=== PATIENT | female | born 2000 | race Caucasian/White ===

== ENCOUNTER → 2021-08-03 | Outpatient (CLI) | payer BC ==
--- NOTE | 2021-08-03 12:20 | KCIC ---
EXAM: ULTRASOUND ABDOMEN LIMITED CLINICAL HISTORY: COLICKY RUQ ABDOMINAL PAIN, FOCUS ON GB COMPARISON: None available. TECHNIQUE: Limited ultrasound examination of the right upper quadrant of the abdomen was performed. FINDINGS: The head and body of the pancreas are unremarkable. The tail is obscured by intestinal gas.. Liver: 14.4 cm in length. Increased hepatic echogenicity relative to the right kidney consistent wi th hepatic steatosis.. There are no focal liver lesions. Flow seen within the portal veins. Biliary: Gallbladder is contracted. Echogenic material dependently likely sludge or small gallstones. No wall thickening or pericholecystic fluid. There is no pain with direct transducer pressure over the gallbladder. Common bile duct measures 0.2. Right Kidney: 9.8 cm in bipolar length. Normal renal cortical echotexture and thickness. No focal beverly al lesion, shadowing renal calculus or hydronephrosis. Visualized portions of the abdominal aorta and inferior vena cava are unremarkable. There is no free fluid in the subhepatic space. IMPRESSION: 1. Fatty liver. 2. Sludge or small gallstones are seen within the gallbladder. No sonographic evidence for acute cho lecystitis. Electronically signed by: Bryant Mcduffie MD (08/03/2021 12:17 PM) [id number]
== END ==
LOC: KCIC US 08:54
PROVIDERS: ATTEND Physician Assistant Medical
DX: K76.0 Fatty (change of) liver, not elsewhere classified (principal); K80.20 Calculus of gallbladder without cholecystitis without obstruction
CPT/HCPCS: 76705

== ENCOUNTER → 2021-09-12 | Outpatient (CLI) | payer BC ==
[~2021-09-12] MED LIST: ASCO500C PO; GABA300C18 PO; MEDR150V3 IM; SERT100T PO
== END ==
LOC: LAB 10:32
PROVIDERS: ATTEND Surgery
DX: U07.1 COVID-19 (principal); K80.20 Calculus of gallbladder without cholecystitis without obstruction
CPT/HCPCS: U0003; U0005

== ENCOUNTER 2021-09-28 06:05 | Day surgery (SDC) | payer BC ==
[~2021-09-28] VITALS: Ht 160 cm; Wt 77.0 kg
[~2021-09-28 06:05] MED LIST changes: +HYDROmorphone 2 MG/ML INJ. IVP PRN; +IV RINGERS,LACTATED 1000ML 1,000 ML IV SCH; +MORPHINE SULFATE 2 MG/ML INJ. IVP PRN; +PROCHLORPERAZINE 10 MG/2 ML VIAL. IVP PRN; +fentaNYL PF VIAL 100 MCG/2 ML VIAL IVP PRN
[2021-09-28 06:35] VITALS: BP 123/77
[2021-09-28] MEDS ORDERED: LIDOCAINE 2% 100 MG/5 ML SYRINGE. ONE (07:00)
[2021-09-28] MEDS ORDERED: DEXAMETHASONE SOD PHOS 20 MG/5 ML VIAL. ONE (07:00)
[2021-09-28] MEDS ORDERED: ePHEDrine PF IN SALINE 50 MG/10 ML SYRINGE. IV ONE (07:00)
[2021-09-28] MEDS ORDERED: NEOSTIGMINE METHYLSULFATE 5 MG/5 ML SYRINGE. ONE (07:00)
[2021-09-28] MEDS ORDERED: PROPOFOL 10 MG/ML (20ML) VIAL. IV ONE (07:00)
[2021-09-28] MEDS ORDERED: GLYCOPYRROLATE 1 MG/5 ML SYRINGE. ONE (07:00)
[2021-09-28] MEDS ORDERED: ROCURONIUM 50 MG/5 ML VIAL. ONE (07:00)
[2021-09-28] MEDS ORDERED: ESMOLOL 100 MG/10 ML VIAL. IVP ONE (07:00)
[2021-09-28] MEDS ORDERED: BUPIVACAINE-EPI 0.5% 30 ML VIAL KIT. ONE (07:04)
[2021-09-28] MEDS ORDERED: SURGICEL HEMOSTAT 4X8 EACH. ONE (07:04)
[2021-09-28] MEDS ORDERED: IOHEXOL 300 MG/ML 50 ML VIAL. ONE (07:04)
[2021-09-28] MEDS ORDERED: fentaNYL PF VIAL 100 MCG/2 ML VIAL ONE ×2 (07:05→08:42)
[2021-09-28] MEDS ORDERED: MIDAZOLAM HCL/PF 2 MG/2 ML VIAL. ONE (07:06)
[2021-09-28] MEDS ORDERED: SCOPOLAMINE 1.5MG PATCH. TD ONE (07:15)
--- NOTE | 2021-09-28 07:32 | PDOC1 ---
History and Physical Date of Admission Date of Admission DATE: 09/28/21 TIME: 07:29 History of Present Illness History of Present Illness The patient is a 21 year old female who was referred out of concern for symptomatic cholelithiasis. She has noticed abdominal pain which is typically worse after eating. She describes intermittent "gripping" pain in the upper abdomen with associated nausea. During her evaluation a sonogram was performed which showed gallstones or gallbladder sludge. Past Medical History Past Medical History anxiety Past Surgical History Past Surgical History tonsillectomy Social History Smoke: No ALCOHOL: none Drugs: None Current Medications Current Medications Current Medications Fentanyl Citrate (Fentanyl 2ml Vial) 25 mcg PRN Q5MIN PRN IVP MILD PAIN 1-3; Start 09/28/21 at 06:00; Stop 09/29/21 at 05:59 Fentanyl Citrate (Fentanyl 2ml Vial) 50 mcg PRN Q5MIN PRN IVP MODERATE PAIN 4- 6; Start 09/28/21 at 06:00; Stop 09/29/21 at 05:59 Morphine Sulfate (Morphine Sulfate) 1 mg PRN Q10MIN PRN IVP SEVERE PAIN 7-10; Start 09/28/21 at 06:00; Stop 09/29/21 at 05:59 Ringer's Solution 1,000 ml @ 30 mls/hr Q24H IV Last administered on 09/28/21at 06:38; Start 09/28/21 at 06:00; Stop 09/28/21 at 17:59 Hydromorphone HCl (Dilaudid) 0.5 mg PRN Q10MIN PRN IVP SEVERE PAIN 7-10, 2nd CHOICE; Start 09/28/21 at 06:00; Stop 09/29/21 at 05:59 Prochlorperazine Edisylate (Compazine) 5 mg PACU PRN PRN IVP NAUSEA, MRX1; Start 09/28/21 at 06:00; Stop 09/29/21 at 05:59 Levofloxacin/ Dextrose 100 ml @ 100 mls/hr 1X PREOP PRN IV PRIOR TO PROCEDURE; Start 09/28/21 at 06:00; Stop 09/28/21 at 18:00 Bupivacaine HCl/ Epinephrine Bitart (Sensorcain-Epi 0.5% Kit) 30 ml STK-MED ONCE .ROUTE ; Start 09/28/21 at 07:04; Stop 09/28/21 at 07:04; Status DC Iohexol (Omnipaque 300 Mg/ml) 50 ml STK-MED ONCE .ROUTE ; Start 09/28/21 at 07:04; Stop 09/28/21 at 07:04; Status DC Cellulose (Surgicel Hemostat 4x8) 1 each STK-MED ONCE .ROUTE ; Start 09/28/21 at 07:04; Stop 09/28/21 at 07:04; Status DC Fentanyl Citrate (Fentanyl 2ml Vial) 100 mcg STK-MED ONCE .ROUTE ; Start 09/28/21 at 07:05; Stop 09/28/21 at 07:06; Status DC Midazolam HCl (Versed) 2 mg STK-MED ONCE .ROUTE ; Start 09/28/21 at 07:06; Stop 09/28/21 at 07:06; Status DC Scopolamine (Transderm-Scop) 1 patch 1X ONCE TD Last administered on 09/28/21at 07:14; Start 09/28/21 at 07:15; Stop 09/28/21 at 07:16; Status DC Active Scripts Active Reported Zoloft (Sertraline Hcl) 100 Mg Tablet 100 Mg PO DAILY Gabapentin 300 Mg Capsule 100 Mg PO TID Medroxyprogesterone Acetate 150 Mg/1 Ml Vial 150 Mg IM [id number] Vitamin C (Ascorbic Acid) 500 Mg Capsule.er 500 Mg PO DAILY Allergies Allergies: Coded Allergies: Penicillins (Verified Allergy, Severe, Anaphylaxis, 09/28/21) amoxicillin (Verified Allergy, Severe, Anaphylaxis, 09/28/21) ROS General: No: Chills, Night Sweats, Fatigue, Malaise, Appetite, Other PSYCHOLOGICAL ROS: No: Anxiety, Behavioral Disorder, Concentration difficultie, Decreased libido, Depression, Disorientation, Hallucinations, Hostility, Irritablity, Memory difficulties, Mood Swings, Obsessive thoughts, Physical abuse, Sexual abuse, Sleep disturbances, Suicidal ideation, Other Eyes: No Blurry vision, No Decreased vision, No Double vision, No Dry eyes, No Excessive tearing, No Eye Pain, No Itchy Eyes, No Loss of vision, No Photophobia, No Scotomata, No Uses contacts, No Uses glasses, No Other HEENT: No: Heacaches, Visual Changes, Hearing change, Nasal congestion, Nasal discharge, Oral lesions, Sinus pain, Sore Throat, Epistaxis, Sneezing, Snoring, Tinnitus, Vertigo, Vocal changes, Other ALLERGY AND IMMUNOLOGY: No: Hives, Insect Bite Sensitivity, Itchy/Watery Eyes, Nasal Congestion, Post Nasal Drip, Seasonal Allergies, Other Hematological and Lymphatic: No: Bleeding Problems, Blood Clots, Blood Transfusions, Brusing, Night Sweats, Pallor, Swollen Lymph Nodes, Other ENDOCRINE: No: Breast Changes, Galactorrhea, Hair Pattern Changes, Hot Flashes, Malaise/lethargy, Mood Swings, Palpitations, Polydipsia/polyuria, Skin Changes, Temperature Intolerance, Unexpected Weight Changes, Other Respiratory: No: Cough, Hemoptysis, Orthopnea, Pleuritic Pain, Shortness of breath, SOB with excertion, Sputum Changes, Stridor, Tachypnea, Wheezing, Other Cardiovascular: No Chest Pain, No Palpitations, No Orthopnea, No Paroxysmal Noc. Dyspnea, No Edema, No Lt Headedness, No Other Gastrointestinal: Yes Nausea, Yes Abdominal Pain Genitourinary: No Dysuria, No Frequency, No Incontinence, No Hematuria, No Retention, No Discharge, No Urgency, No Pain, No Flank Pain, No Other, No , No , No , No , No , No , No Musculoskeletal: No Gait Disturbance, No Joint Pain, No Joint Stiffness, No Joint Swelling, No Muscle Pain, No Muscular Weakness, No Pain In:, No Swelling In:, No Other Neurological: No Behavorial Changes, No Bowel/Bladder ControlChng, No Confusion, No Dizziness, No Gait Disturbance, No Headaches, No Impaired Coord/balance, No Memory Loss, No Numbness/Tingling, No Seizures, No Speech Problems, No Tremors, No Visual Changes, No Weakness, No Other Skin: No Dry Skin, No Eczema, No Hair Changes, No Lumps, No Mole Changes, No Mottling, No Nail Changes, No Pruritus, No Rash, No Skin Lesion Changes, No Other, No Acne Physical Exam General: Alert, Oriented X3, Cooperative HEENT: Atraumatic Lungs: Clear to auscultation Abdomen: Normal bowel sounds, Soft, No tenderness Rectal Exam: not examined Extremities: No clubbing, No cyanosis Skin: No rashes, No breakdown Neuro: Normal speech Psych/Mental Status: Mental status NL Vitals Vitals Vital Signs Date Time Temp Pulse Resp B/P (MAP) Pulse Ox O2 Delivery O2 Flow Rate FiO2 09/28/21 06:37 97.8 111 20 123/77 96 Room Air 97.8 Labs Labs Laboratory Tests Test 09/28/21 06:22 Bedside Urine HCG, Qualitative Hcg negative (Negative) Laboratory Tests Test 09/28/21 06:22 Bedside Urine HCG, Qualitative Hcg negative (Negative) VTE Prophylaxis Ordered VTE Prophylaxis Devices: Yes VTE Pharmacological Prophylaxi: No Assessment/Plan Assessment/Plan Symptomatic cholelithiasis, plan for laparoscopic cholecystectomy. The details and risks of surgery were discussed with the patient. She understands and would like to proceed. Justifications for Admission Other Justification HOLLY CRAWFORD MD Sep 28, 2021 07:32
[2021-09-28] MEDS ORDERED: BUPIVACAINE-EPI 0.5%-1:200000 MPF 30 ML VIAL. INJ ONE (08:11)
[2021-09-28] MEDS ORDERED: HYDROmorphone 2 MG/ML INJ. ONE (08:42)
[2021-09-28] MEDS ORDERED: oxyCODONE/APAP 5/325 1 TAB TABLET ONE (08:42)
[2021-09-28] MEDS ORDERED: KETOROLAC 30 MG/ML VIAL. ONE (08:43)
[2021-09-28] MEDS ORDERED: ONDANSETRON PF 4 MG/2 ML VIAL. ONE (08:43)
[2021-09-28] MEDS ORDERED: MORPHINE SULFATE 2 MG/ML INJ. ONE (08:43)
--- NOTE | 2021-09-28 08:57 | PDOC4 ---
Operative Note Operative Note Operative Note: Preoperative Diagnosis: Symptomatic cholelithiasis Postoperative Diagnosis: Same Procedure: Laparoscopic cholecystectomy with intraoperative cholangiogram Surgeons: [employer] Manager: LAINA Palma, Selvin Moreira MS 3 Anesthesia: Gen. Estimated Blood Loss: 10 mL Specimen: Gallbladder to pathology Drains: None Complications: None Indications: The patient is a 21-year-old female who is been experiencing rec urrent upper abdominal pain consistent with biliary colic. Her evaluation is consistent with either symptomatic cholelithiasis or gallbladder sludge. Surgical treatment was offered by means of a laparoscopic cholecystectomy. The risks of surgery were discussed which include bleeding, infection, bile duct injury, bile leak, pain, the potential for additional surgeries or procedures. The patient understands and would like to proceed. Description: The patient was taken to the operating room and laid supine on the operating table. General anesthesia was performed. The abdomen was prepped with ChloraPrep and draped in a standard surgical fashion. A small infraumbilical incision was made with a scalpel. The Veress needle was then inserted and a pneumoperitoneum was then created. A 5 mm trocar was then inserted and the laparoscope was introduced. In the upper midabdomen a 5 mm trocar was inserted and in the right upper quadrant two 2.3 mm mini lap graspers were inserted. The gallbladder was retracted cephalad. The cystic duct was dissected free from surrounding tissues. One clip was placed on the duct near the gallbladder junction. An opening was made in the duct and a cholangiocatheter placed within and secured with a clip. Using contrast dye and fluoroscopy an intraoperative cholangiogram was performed that appeared unremarkable. The clip and catheter were then withdrawn. Three clips were placed on the cystic duct and it was divided. The cystic artery was then identified, dissected free, doubly clipped and divided as well. The gallbladder was then mobilized away from the liver with cautery. The umbilical 5 millimeter trocar was exchanged for an 11 millimeter trocar. The gallbladder was then placed in an endoscopic bag and extracted at the umbilical trocar site. The fascia there was closed with an 0 Vicryl suture and infiltrated with 0.5% marcaine. All blood and irrigation fluid was suctioned and hemostasis was good. The remaining ports were removed and the pneumoperitoneum was relieved. The skin incisions were closed using 4-0 Monocryl suture. Steri-Strips and dressings were then applied. The patient tolerated the procedure well and was sent to the recovery room in stable condition. At the end of the case all counts were correct. HOLLY CRAWFORD MD Sep 28, 2021 08:57
[2021-09-28] MEDS ORDERED: OXYC-325 PO (08:59)
[2021-09-28] MEDS: fentaNYL PF VIAL 100 MCG/2 ML VIAL IVP PRN ×2 (09:00→09:43)
--- NOTE | 2021-09-28 09:01 | DISCH ---
DISCHARGE INSTRUCTIONS Condition on Discharge Condition on Discharge: Stable Activity After Discharge Activity Instructions for Disc: Other, see below (No lifting over 20 lbs X 2 weeks, no driving while taking pain meds) Diet after Discharge Diet after Discharge: Regular Wound Incision Care Wound/Incision Care: Other, see below (may remove bandaids tomorrow and shower, steristrips fall off on their own) Follow-Up Follow up with: Dr Crawford in 2 weeks in office, call for appt [phone] HOLLY CRAWFORD MD Sep 28, 2021 09:01
--- NOTE | 2021-09-28 09:08 | RAD ---
Intraoperative cholangiogram dated 09/28/2021. COMPARISON: None. INDICATION: Cholecystectomy in OR. FINDINGS: 2 fluoroscopic images submitted. 11 seconds fluoroscopic time. Images show cannulation of the cystic duct with filling of the extra hepatic biliary tree. The common duct is normal in caliber. No filling defect or stricture. Contrast material extends into proximal small bowel. IMPRESSION: Negative intraoperative cholangiogram. Electronically signed by: Сергей Chamorro MD (09/28/2021 9:06 AM) [id number]
[2021-09-28] MEDS ORDERED: oxyCODONE/APAP 5/325 1 TAB TABLET PO ONE (09:15)
[2021-09-28 09:53] VITALS: BP 135/64
--- NOTE | 2021-09-29 14:11 | PATHOLOGY ---
[facility] Accession Number: [id number] . 01 Material submitted: . gallbladder - GALLBLADDER AND CONTENTS . 01 Clinical history: . CHOLECYSTITIS LAPAROSCOPIC CHOLECYSTECTOMY . 02 Diagnosis: Gallbladder, laparoscopic cholecystectomy: - Chronic cholecystitis, mild. LBQ 09/29/2021 1035 Local . 02 Comment: There are no calculi identified within the gallbladder lumen or specimen container. Sections of the gallbladder show focal mild chronic inflammation. There is no evidence of malignancy. (JPM/db; 09/29/2021) . 02 Electronically signed: . Jatin Dillon MD, Pathologist NPI- [id number] . 01 Gross description: . Fixative: Formalin Labeled: Gallbladder and contents Specimen received: Intact gallbladder Dimensions: 6.3 x 2.8 x 2.5 cm Serosa: Blue-mancilla and roughened Lymph node: Not identified Mucosa: Velvety, bile-stained Average wall thickness: Up to 0.3 cm Calculi: None present Abnormalities: None identified . A1- Glass Artist body, fundus, and the cystic duct margin. ([facility]; 09/28/2021) NRI/NRI 09/28/2021 1901 Local . 02 Pathologist provided ICD-10: K81.1 . 02 CPT . 534329 Specimen Comment: A courtesy copy of this report has been sent to [phone], [phone] Specimen Comment: [id number] Specimen Comment: Report sent to / DR AGUSTIN Specimen Comment: A duplicate report has been generated due to demographic updates. Performed at: [address], [place], [place] [id number] MD Lyle Eldridge MD Phone: [phone] Performed at: 02 [facility] [address] [place], [place] [id number] MD Jatin Dillon MD Phone: [phone]
== END 2021-09-28 10:03 | disposition home or self-care (01) ==
LOC: SURG 06:05
PROVIDERS: ATTEND Surgery
DX: K80.10 Calculus of gallbladder with chronic cholecystitis without obstruction (principal); F41.9 Anxiety disorder, unspecified; Z79.899 Other long term (current) drug therapy; Z98.890 Other specified postprocedural states; Z88.0 Allergy status to penicillin; Z88.1 Allergy status to other antibiotic agents; Z88.8 Allergy status to other drugs, medicaments and biological substances
CPT/HCPCS: 47563; 74300; 81025; A4213; A4314; A4364; A4930; A6219; C1887; J1100; J1885; J1956; J2250; J2405; J2704; J2710; J3010; J3490; Q9967; A4452; A4657; J1170; J2270